=== PATIENT | male | born 1950 | race African-American/Black ===

== ENCOUNTER → 2016-12-19 | Outpatient (CLI) | payer BC ==
[~2016-12-19] MED LIST: ADALAT CC PO; ADALATCC PO; ALDACTONE100 MG PO; ALDACTONE25 MG PO; ALLER-TEC10 MG PO; AMOXICILLIN PO; ANTIVERT PO; CATAPRES0.3 MG PO; CIALIS PO; CLARITIN10 MG PO; CLONIDINE HCL0.3 MG PO; CLONIDINE PO; DELTASONE20 MG PO; DIAZEPAM PO; FLEXERIL PO; FLEXERIL10 MG PO; GLUCOPHAGE XR500 MG PO; GLUCOPHAGE500 M1 PO; GLUCOTROL PO; GLYBURIDE PO; HALCION PO; HYDRALAZINE HC100 MG PO; IBUPROFEN800 MG PO; K-DUR20 ME1 PO; KCL PO; LASIX PO; LASIX20 MG PO; LISINOPRIL; LISINOPRIL PO; LOPRESSOR PO; LOZOL PO; MAXZIDE-25MG TA1 TAB; METFORMIN PO; MINOXIDIL2.5 MG PO; MORPHINE ER PO; NIFEDIPINE XR PO; NORCO 10-325 TA1 TAB PO; NORMODYNE PO; NORVASC; PAXIL PO; PAXIL10 MG PO; PERCOCET 10/31 UDTA1 PO; PERCOCET 10/3251 TAB PO; PERCOCET PO; PROCARDIA XL PO; PROCARDIA10 MG PO; TOPAMAX PO; TOPIRAMATE100 MG PO; TRANDATE100 M1 PO; TYLENOL #3 PO; VICODIN 5/1 TAB 5/50 PO; ZESTRIL40 MG PO; ZYLOPRIM; ZYRTEC PO; [UNRECOGNIZED DRUG - OTHER]
--- NOTE | ~2016-12-19 | US5 ---
[facility] A Service of [facility] [place] RADIOLOGY TEXT RESULTS PATIENT: RODRIGO GANN LOCATION: [facility] #: [id number] : 54 UNIT #: [id number] AGE: [address]: FLORENCE MCKENNA SEX: M ORDER DR: [id number] [place] [id number] [id number] O MR#: [id number] Acc #: [id number] NAME: RODRIGO GANN : 1950 SEX: M STUDY DATE/TIME: 12/19/2016 9:34 UNIT: SG ROOM: STUDY DESCRIPTION: US Abdominal Complete Attending Physician: Florence Mckenna Aprn Referring Physician: Nikolay Xie III, M.D. Ordering Physician: Nikolay Xie III, M.D. Primary Care Physician: Dontae Lovett M.D. MEDICAL IMAGING REPORT This report is preliminary unless electronic signature is present. EXAM Abdominal ultrasound INDICATION Hepatitis C. Observation for cirrhosis and hepatocellular carcinoma. PROCEDURE Gerber-scale and Doppler imaging of the abdomen. COMPARISON 05/17/2016 FINDINGS Visualized portions of pancreas are unremarkable. The liver measures 20.9 cm in length. There is a 1.7 cm stone in the gallbladder. No gallbladder wall thickening or pericholecystic fluid. Common duct measures 4.0-5.0 mm. Right kidney measures 8.8 cm. Left kidney measures 12.7 cm. No hydronephrosis. Spleen measures 9.7 cm. Abdominal aorta, inferior vena cava are obscured and not well seen. The liver is difficult to evaluate but appears to have coarsened echotexture with questionably cirrhotic morphology. IMPRESSION 1. The liver is difficult to evaluate on this study but has coarsened echotexture and possibly cirrhotic morphology. No discrete liver mass seen on this study. 2. Uncomplicated cholelithiasis. 3. The liver is enlarged measuring up to 20.9 cm. Dictated by... Ramiro Kinney M.D. [facility] A Service of [facility] [place] RADIOLOGY TEXT RESULTS PATIENT: RODRIGO GANN LOCATION: [facility] #: [id number] : 54 UNIT #: [id number] AGE: [address]: FLORENCE MCKENNA SEX: M ORDER DR: THIS IS AN ELECTRONICALLY VERIFIED REPORT Ramiro Kinney M.D. at 12/20/2016 10:45 AM Obie TD: 12/19/2016 13:15 JOB #: [id number] MEDICAL IMAGING REPORT Page 1 of 1
== END | disposition home or self-care (01) ==
LOC: SGUS 12-05 09:00
DX: B18.2 Chronic viral hepatitis C (principal); K80.20 Calculus of gallbladder without cholecystitis without obstruction; R16.0 Hepatomegaly, not elsewhere classified
CPT/HCPCS: 76700

== ENCOUNTER 2017-01-15 04:36 | Emergency (ER) | payer BC ==
[~2017-01-15] VITALS: Ht 188 cm; Wt 140.6 kg
[~2017-01-15 04:36] MED LIST changes: -HALCION PO; -LISINOPRIL; -ZYLOPRIM
[2017-01-15] MEDS ORDERED: HALCION PO (04:49)
== END 2017-01-15 05:34 | disposition home or self-care (01) ==
LOC: SED 04:36
DX: M25.561 Pain in right knee (principal); I10 Essential (primary) hypertension; Z91.041 Radiographic dye allergy status; Z88.2 Allergy status to sulfonamides; Z79.899 Other long term (current) drug therapy
CPT/HCPCS: 99283

== ENCOUNTER 2017-01-30 12:32 | Emergency (ER) | payer BC ==
[~2017-01-30 12:32] MED LIST changes: +HALCION PO
[2017-01-30] MEDS ORDERED: LISINOPRIL (12:48)
[2017-01-30] MEDS ORDERED: ZYLOPRIM (12:52)
== END 2017-01-30 13:52 | disposition home or self-care (01) ==
LOC: SED 12:32
DX: M25.562 Pain in left knee (principal); I10 Essential (primary) hypertension; Z91.041 Radiographic dye allergy status; Z88.1 Allergy status to other antibiotic agents; Z79.899 Other long term (current) drug therapy
CPT/HCPCS: 99283